=== PATIENT | male | born 2000 ===

== ENCOUNTER → 2021-08-25 | Outpatient (CLI) | payer SELFPAY ==
[2021-08-27 23:07] LABS: CHLAMYDIA TRACHOMATIS, NAA Positive (Negative)
== END | disposition home or self-care (01) ==
LOC: LAB SHORT 15:54
PROVIDERS: Nurse Practitioner Family
DX: N34.1 Nonspecific urethritis (principal); R30.0 Dysuria
CPT/HCPCS: 87086; 87491; 87591